=== PATIENT | female | born 1955 | race Caucasian/White ===

== ENCOUNTER 2017-06-17 11:50 | Outpatient (CLI) | payer BC ==
[2017-06-17 13:20] LABS: Hemoglobin 14.8 g/dL (12.0-16.0); Mean Corpuscular HGB CONC 33.1 g/dL (32.0-36.0); Mean Corpuscular Hemoglobin 30.3 pg (27.0-31.0); Mean Corpuscular Volume 91.4 fl (81.0-99.0); Mean Platelet Volume 7.1 fL (7.4-10.4); Platelet Count 284 thou/uL (130-400); Red Blood Cell (RBC) Count 4.88 mill/uL (4.20-5.40); White Blood Cell (WBC) Count 7.2 thou/uL (4.8-10.8)
[2017-06-17 13:29] LABS: PTT 29.8 SEC (22.9-36.1); Prothrombin Time 13.1 SEC (12.0-14.7)
== END 2017-06-17 11:51 | disposition home or self-care (01) ==
LOC: LABBT 11:50
PROVIDERS: ATTEND Neurological Surgery
DX: M48.061 Spinal stenosis, lumbar region without neurogenic claudication (principal); M71.8 Other specified bursopathies
CPT/HCPCS: 85027; 85610; 85730

== ENCOUNTER 2017-06-17 12:00 | Inpatient (IN) | payer BC ==
[2017-06-17 12:13] VITALS: BMI 24.4
--- NOTE | 2017-06-17 16:40 | HP ---
HISTORY OF PRESENT ILLNESS: Slime Lang is a 61-year-old female that presents with low back pain, right greater than left; numbness and tingling in the L5 dermatome. She has had low back pain for y ears; however, she is very tender over the bilateral SI joint and the pain has gotten worse over the past 3 months. The pain is made worse with stepping up onto something and walking. She has had no l umbar epidural steroids or physical therapy. She is very unsteady on her feet and she has been this way for several years. She has not had any bowel or bladder incontinence. IMAGING: MRI of the lumbar spines at [facility]. X-ray of the lumbar spine, [facility]. REVIEW OF SYSTEMS: 10-point review of systems was complete and is otherwise negative unless stated i n the above HPI. PAST MEDICAL HISTORY: 1. Restless legs syndrome. 2. Asthma. 3. Cervical arthritis. 4. Sciatica, insomnia. PAST SURGICAL HISTORY: 1. Complete hysterectomy in 1994. 2. Bilateral arms, hands, nerve release in 1998. FAMILY HISTORY: Father is at 69 years old with colon cancer. Mother is at 70 year s old with heart disease. One daughter that is healthy. One brother that at the age of 38 with a heart attack. Sister that at the age of 64 with lung cancer. SOCIAL HISTORY: The patient is a current smoker, 1 pack a day for 50 years. She has 5 alcoholic aleena erages a day. She is retired. She is and has 1 child. MEDICATIONS: 1. Celebrex 200 mg capsule, 1 capsule orally once a day. 2. Ranitidine 75 mg tablet, 1 tablet orally p.r.n. 3. Allergy injections 2 shots twice a week. 4. Albuterol sulfate 0.083% liquid use one vial nebulizer inhaled q.4-6 hours for shortness of breat h. 5. Carbidopa and levodopa 10/100 mg tablet, take 1 tablet by mouth every day. 6. Advair Diskus 100/50 mcg per dose. 7. Effexor XR 150 mg capsule extended release 24 hour, 1 capsule orally once a day. 8. Zolpidem tartrate 12.5 mg tablet extended release, 1 tablet at bedtime as needed, orally once a d ay. 9. Swimmer's ear drops/isopropyl alcohol as directed. 10. Zyrtec-D Allergy & Congestion 5/125 mg tablet extended release for 12 hour. 11. Detrol LA 4 mg capsule, extended release, 1 capsule orally once a day. ALLERGIES: No known drug allergies. PHYSICAL EXAMINATION: HEENT: Normocephalic, atraumatic. Hearing intact. Moist mucous membranes. Trachea is midline. Ey es: Pupils are equal and reactive to light. Extraocular muscles are intact. Sclerae are white and nonicteric. PSYCHIATRIC: Normal mood and affect. CARDIOVASCULAR/CARDIOPULMONARY: No cyanosis or clubbing noted. Intact pedal pulses bilaterally. MUSCULOSKELETAL: Lower extremity, 4/5 strength in bilateral iliopsoas, quadriceps, hamstrings, right iliopsoas anterior, extensor hallucis longus. Sensory deficits bilaterally, but worse in the right L5 dermatome. Tender to palpation over the bilateral SI joints. RESPIRATORY: Even respirations, good effort. All lung yi sound clear with no wheezing or crackl es. NEUROLOGIC: Cranial nerves II-XII are grossly intact. Speech is fluent. She answers my questions a ppropriately. The patient has unsteady gait and station. ASSESSMENT: 1. Neurogenic claudication due to lumbar spinal stenosis. 2. Lumbar radiculopathy. 3. Lumbago with sciatica of the left side and the right side. 4. Bilateral sacroiliitis. PLAN: Flexion and extension x-rays of the lumbar spine to check for abnormal translation were perfor med, and there is L4-L5 instability. Dr. Ramirez talked with the patient about an L2-L3 and L4-L5 laminectomy and synovial cystectomy with an L4-L5 TLIF. The patient is to quit smoking. We discusse d the risks, benefits, and possible complications of surgery. She is fully aware of the risks and is willing to proceed with the surgery.
[2017-06-19] MEDS ORDERED: Midazolam HCl 2 mg/2 ml Vial ONE (06:10)
[2017-06-19] MEDS ORDERED: Fentanyl 100 MCG/2 ML VIAL ONE ×3 (06:10→13:02)
[2017-06-19] MEDS ORDERED: CEFAZOLIN/Water 2 GM/20 ML SYRINGE ONE (06:11)
[2017-06-19] MEDS ORDERED: Fentanyl 250 MCG/5 ML VIAL ONE (06:21)
[2017-06-19] MEDS ORDERED: Sodium Chloride 0.9% 20 ML ONE (06:40)
[2017-06-19] MEDS ORDERED: Lidocaine 1% w/Epinephrine 1:200K 30 ML VIAL ONE (06:40)
[2017-06-19] MEDS ORDERED: Thrombin 5000 UNITS/5 ML VIAL ONE ×2 (06:40→12:34)
[2017-06-19] MEDS ORDERED: Bupivacaine PF 0.5% 30 ML VIAL ONE (07:49)
[2017-06-19] MEDS ORDERED: Meperidine HCl/PF 25 MG/ML VIAL SLOW IVP PRN (11:30)
[2017-06-19] MEDS ORDERED: Promethazine HCl 25 MG/ML VIAL SLOW IVP PRN (11:30)
[2017-06-19] MEDS ORDERED: HYDROmorphone 2 MG/ML VIAL SLOW IVP PRN (11:30)
[2017-06-19] MEDS ORDERED: Morphine Sulfate 2 MG/ML SYRINGE SLOW IVP PRN (11:30)
[2017-06-19] MEDS ORDERED: PHENYLEPHRINE-NS 100 MCG/ML 10 ML SYRINGE ONE ×2 (11:40→12:33)
[2017-06-19] MEDS ORDERED: Acetaminophen/Codeine 30-300mg Tablet PO PRN (11:56)
[2017-06-19] MEDS ORDERED: Ondansetron HCl/PF 4 MG/2 ML Vial IVP PRN (11:56)
[2017-06-19] MEDS ORDERED: Morphine 4 MG/ML Carpuject SLOW IVP PRN ×2 (11:56)
--- NOTE | 2017-06-19 11:59 | OP ---
DATE OF PROCEDURE: 06/19/2017 SURGEON: Liss Ramirez M.D. LAUNDRY TECH: Ashvin Palma PA-C. PREOPERATIVE INDICATION: Treat pain, prevent neurological deterioration. PREOPERATIVE DIAGNOSES: L2-3 stenosis with synovial cyst and radiculopathy, L4-L5 stenosis from spon dylolisthesis, unstable. POSTOPERATIVE DIAGNOSES: L2-L3 stenosis with synovial cyst and radiculopathy, L4-L5 stenosis from sp ondylolisthesis, unstable. OPERATIVE PROCEDURE: Decompressive laminectomy, medial facetectomy, foraminotomy, and microsurgical resection of synovial cyst at L2-3, decompressive laminectomy, medial facetectomy, foraminotomy, aceves sforaminal lumbar interbody arthrodesis, placement of intervertebral biomechanical device, pedicle sc rew and jag instrumentation, posterolateral arthrodesis at L4 and L5. PREOPERATIVE MEDICATION: Ancef 2 grams IV. DRAIN NUMBER: 1 DRAIN TYPE: Vietnamese Richi. OPERATIVE DICTATION: The patient was brought to the operating room. General endotracheal anesthesia was induced. The patient was positioned prone on the operating table on the Sergio frame. A later al fluoro radiograph was used to plan the incision. The appropriate attachments for the chest and hi ps were used for the Sergio frame. The lumbar skin was sterilely prepped and draped. We opened our incision with a 10 blade knife and controlled bleeding with bipolar and monopolar cautery. We used monopolar cautery to dissect through the subcutaneous tissues to the thoracodorsal fascia. We incise d the fascia in the midline and reflected the paraspinal muscles off the spinous process and lamina o f L2, L3, L4, and L5. A lateral fluoro radiograph confirmed the levels upon which we were operating. We then carried our dissection over the L3-4 and L4-5 facet joints to the transverse processes of L 4 and L5 bilaterally. We irrigated copiously with bacitracin irrigation and placed self-retaining re tractors. We then used an Adson rongeur to remove the spinous process of L2 and the superior portion of L3. In a similar fashion, we removed the spinous process of L4 and the superior portion of L5. We fashioned a laminectomy at L2-L3 and L4-L5. The operating microscope was brought into the field. Under microscopic magnification and using microsurgical techniques, we removed the yellow ligament. There was an intraspinal extradural mass in the lateral recess on the right side at L2-3. This was f illed with old blood products. This was a synovial cyst and it was adherent to the dura. We careful ly dissected off the dura and there was no durotomy encountered. We removed it attachments of the fa cet joint and perform medial facetectomy. We performed foraminotomies over the exiting L2 and susan sing and exiting L3 nerve roots on both sides. After securing our decompression there we turned our attention to L4-5. In a similar fashion, the operating microscope and we completed our medial facete ctomy, foraminotomy over the L4 and L5 nerve roots. We used a high-speed drill to drill out the pars and articularis of L4 on the right side. Using this opening into the foramen, we accessed the inter vertebral disk under the L4 nerve root. We removed disk contents using curettes and rongeurs. A bon e rasp was brought into the field and using progressively larger rasp, we measured the height of the interspace to 9 mm. We prepared the endplates for grafting. Our laminectomy bone was carefully mors elized the back table after soft tissue was removed and this was added to demineralized bone matrix a s our fusion substrate. The substrate was packed a 9 mm PEEK intervertebral graft and the graft was advanced into the interspaces under radiographic guidance to the appropriate depth. We turned our at tention to pedicle screw instrumentation. We removed the operating microscope and then using a lateral fluoro radiograph, bony anatomic landmar ks, plication of the medial portion of the pedicles, we chose our entry points at L4 and L5 pedicle s crews. We drilled all our entry points and then used a bone awl the create our trajectory through th e pedicles into the vertebral bodies. We tapped the trajectory. We probed these and found it comple tely encased in bone. We placed 6.5 mm diameter screws at L4 and L5 bilaterally. A 360 degree image set was generated with our isocentric C-arm confirming adequate positioning of our pedicle screw ins trumentation. We then irrigated copiously with bacitracin irrigation. We decorticated the transvers e processes bilaterally and left demineralized bone matrix and morselized autograft over the transver se processes as are posterolateral fusion substrate. We brought rods down into the screw heads and t ightened caps down over the rods using [id number] mechanism, we ensured adequate tightness before final tightening. Before tightening, we used gentle compression across the interspace to selma p our interbody device in place. We ensured that the L4 nerve roots were still widely decompressed. We tunneled a drain inferiorly through a separate stab incision and applied vancomycin powder to the wound. We closed the wound in anatomic layers over a drain. This was a clean case and no contamina tion.
[2017-06-19] MEDS ORDERED: Docusate 100 MG CAP PO PRN (12:00)
[2017-06-19] MEDS ORDERED: Famotidine 20 MG TAB PO PRN (12:00)
[2017-06-19] MEDS ORDERED: [UNRECOGNIZED DRUG - REMARK] SC SCH (12:00)
[2017-06-19] MEDS ORDERED: Dexamethasone 20 MG/5 ML VIAL ONE (12:33)
[2017-06-19] MEDS ORDERED: Lidocaine 1% PF 5 ML VIAL ONE (12:33)
[2017-06-19] MEDS ORDERED: Ondansetron HCl/PF 4 MG/2 ML Vial ONE (12:33)
[2017-06-19] MEDS ORDERED: PROPOFOL 200 MG/20 ML VIAL ONE (12:33)
[2017-06-19] MEDS: CEFAZOLIN/Water 2 GM/20 ML SYRINGE SLOW IVP SCH ×2 (14:54→22:05)
[2017-06-19] MEDS: HYDROcodone/Acetaminophen 10/325 mg Tablet PO PRN (17:08)
[2017-06-19] MEDS: tiZANidine HCl 4 MG TAB PO PRN (17:11)
[2017-06-19] MEDS: Sodium Chloride 0.9% 1,000 ML IV SCH (17:30)
[2017-06-19] MEDS: Mometasone/Formoterol 120 PUFF INHALER INH SCH (19:21)
[2017-06-19] MEDS: Carbidopa/Levodopa 10-100 mg Tablet PO SCH (22:04)
[2017-06-19] MEDS: Zolpidem Tartrate 5 MG TAB PO SCH (22:04)
[2017-06-19] MEDS: TROSPIUM 20 MG TABLET PO SCH (22:04)
[2017-06-19] MEDS: Acetaminophen/Codeine 30-300mg Tablet PO PRN (22:05)
[2017-06-20] MEDS: Sodium Chloride 0.9% 1,000 ML IV SCH ×3 (06:10→20:48)
[2017-06-20] MEDS: CEFAZOLIN/Water 2 GM/20 ML SYRINGE SLOW IVP SCH ×3 (06:11→20:47)
[2017-06-20] MEDS: tiZANidine HCl 4 MG TAB PO PRN (06:11)
[2017-06-20] MEDS: Mometasone/Formoterol 120 PUFF INHALER INH SCH ×2 (07:51→19:53)
[2017-06-20] MEDS: Loratadine 10 MG TAB PO SCH (08:34)
[2017-06-20] MEDS: TROSPIUM 20 MG TABLET PO SCH ×2 (08:35→20:47)
[2017-06-20] MEDS: Venlafaxine HCl XR 150 MG CAP PO SCH (08:35)
[2017-06-20] MEDS: Acetaminophen/Codeine 30-300mg Tablet PO PRN ×2 (08:35→14:45)
--- NOTE | 2017-06-20 12:16 | PRG ---
DATE OF SERVICE: 06/20/2017 Ms. Lang is now postop day #1 following lumbar laminectomy and T lift. Overall, she is doing marcio y well. She has ambulated some to the bathroom, but has mostly just stayed in bed since yesterday. She reports the expected soreness and pain in her midline lumbar spine, but otherwise I think it look s to be very well appearing. She is eating breakfast this morning. Plan will be to get her up and m obilize plenty today and then anticipate discharge as early as later this evening, but likely tomorro w morning. She does continue to have a TIFFANIE drain that has drained 130 since yesterday. We will armando ornelas to follow.
[2017-06-20] MEDS: Zolpidem Tartrate 5 MG TAB PO SCH (20:47)
[2017-06-20] MEDS: Carbidopa/Levodopa 10-100 mg Tablet PO SCH (23:14)
[2017-06-21] MEDS: CEFAZOLIN/Water 2 GM/20 ML SYRINGE SLOW IVP SCH (06:15)
[2017-06-21] MEDS: HYDROcodone/Acetaminophen 10/325 mg Tablet PO PRN (06:18)
[2017-06-21] MEDS: Mometasone/Formoterol 120 PUFF INHALER INH SCH (07:11)
[2017-06-21 08:11] VITALS: BP 126/69; TEMP 99.1
[2017-06-21] MEDS ORDERED: Multivitamin W/ Minerals 1 TAB PO SCH (09:00)
[2017-06-21] MEDS: Loratadine 10 MG TAB PO SCH (09:27)
[2017-06-21] MEDS: Venlafaxine HCl XR 150 MG CAP PO SCH (09:28)
[2017-06-21] MEDS: TROSPIUM 20 MG TABLET PO SCH (09:28)
--- NOTE | 2017-06-21 09:28 | DIS ---
DATE OF ADMISSION: 06/19/2017 DATE OF DISCHARGE: 06/21/2017 Ms. Lang was admitted to [facility] by Dr. Hosea Ramirez on 06/19/2017 with subsequent discharge on 06/21/2017 in the postoperative period. ADMISSION DIAGNOSIS: Status post lumbar fusion. DISCHARGE DIAGNOSES: Status post lumbar fusion. Ms. Lang's hospital course was not complicated by any significant matter, no consultations were o rdered. There was minor pain control issues in the first day, but this resolved on the second day. She has been ambulating well on her own and is eager to get home. Incision has remained well approxi mated and dry. She did have a TIFFANIE drain, initially drained 140 in the first day and then 60 over nigh t the second evening, this was removed in the morning on the 06/21/2017 and she was ultimately discha rged home in good condition with outpatient followup planned [facility].
== END 2017-06-21 11:44 | disposition home or self-care (01) | DRG 460 ==
LOC: SURG A 06-19 05:35 → SJJU 06-19 13:06
PROVIDERS: ADMIT Neurological Surgery; ATTEND Neurological Surgery
PROC: 0SG10AJ Fusion of 2 or more Lumbar Vertebral Joints with Interbody Fusion Device, Posterior Approach, Anterior Column, Open Approach (ICD-10-PCS; principal; 2017-06-19)
PROC: 01NB0ZZ Release Lumbar Nerve, Open Approach (ICD-10-PCS; 2017-06-19)
PROC: 0QB00ZZ Excision of Lumbar Vertebra, Open Approach (ICD-10-PCS; 2017-06-19)
DX: M48.062 Spinal stenosis, lumbar region with neurogenic claudication (principal); F17.210 Nicotine dependence, cigarettes, uncomplicated; M71.30 Other bursal cyst, unspecified site; M51.17 Intervertebral disc disorders with radiculopathy, lumbosacral region; M46.1 Sacroiliitis, not elsewhere classified; M71.38 Other bursal cyst, other site; Z82.49 Family history of ischemic heart disease and other diseases of the circulatory system; Z80.1 Family history of malignant neoplasm of trachea, bronchus and lung
CPT/HCPCS: 76001; A4216; C1713; C1768; G8978-GP-CJ; G8979-GP-CJ; G8980-GP-CJ; J1100; J2001; J2250; J2405; J2704; J3010; J3370; J3490; S0020

== ENCOUNTER 2018-03-22 12:34 | Outpatient (CLI) | payer BC ==
--- NOTE | 2018-03-22 15:27 | MRI ---
CERVICAL SPINE MRI WITHOUT CONTRAST: HISTORY: Herniated nucleus pulposis of the cervical spine. Neck pain x 30+ years. COMPARISON: None. TECHNIQUE: MRI cervical spine is performed without intravenous Gadolinium administration. Multisequential, mult iplanar imaging is performed. Multisequential, multiplanar imaging is performed. FINDINGS: Appropriate T1 marrow signal intensity of the cervical vertebrae. Vertebral body height is maintaine d. No fracture. No significant STIR hyperintensity to suggest vertebral body edema or ligamentous i njury. Visualized brain parenchyma, cervicomedullary junction, cervical cord, and the upper thoracic cord fountain ve a normal size and signal intensity. There is T2 and FLAIR hyperintensity involving the visualized mid brain and rere which may be on the basis of chronic small-vessel ischemic change. Reference made to a brain MRI from 10/03/2016 does demo nstrate T2 and FLAIR hyperintensities. C2-C3: No significant disk-osteophyte complex. No significant central canal stenosis. Foramen are patent. C3-C4: Broad-based disk-osteophyte complex with a central component abuts the thecal sac. No signif icant central canal stenosis. Degenerative change of bilateral uncovertebral joints results in moder ate bilateral foraminal narrowing. C4-C5: No significant disk-osteophyte complex. No significant central canal stenosis. Neural lynnette en are patent bilaterally. C5-C6: There is a broad-based disk-osteophyte complex that abuts the thecal sac. Ventral subarachno id space is effaced. Mild flattening of the cervical cord. No T2 hyperintensity in the cord. Mild to moderate central canal stenosis. Right neural foramen is patent. Moderate left foraminal narrowi ng. C6-C7: No significant disk-osteophyte complex. No significant central canal stenosis. Foramen are patent. C7-T1: No significant disk-osteophyte complex. No significant central canal stenosis. Foramen are patent. IMPRESSION: Degenerative change of the cervical spine as detailed above. POS: LIVE
== END 2018-03-22 12:35 | disposition home or self-care (01) ==
LOC: TBSIIMAG 12:34 → MRI 12:35
PROVIDERS: ATTEND Neurological Surgery
DX: M50.20 Other cervical disc displacement, unspecified cervical region (principal); M47.892 Other spondylosis, cervical region
CPT/HCPCS: 72141

== ENCOUNTER 2023-08-04 14:19 | Inpatient (IN) | payer MEDICARE ==
[2023-08-04] MEDS ORDERED: Ondansetron ODT 4 MG TAB PO PRN (15:27)
[2023-08-04] MEDS: Sodium Chloride 0.9% 1,000 ML IV SCH (16:23)
[2023-08-04] MEDS: Nicotine 14 MG PATCH TD SCH (16:23)
[2023-08-04] MEDS: FLU VACC QS2023(65UP)/MF59C/PF 60 MCG/0.5 ML SYRINGE IM ONE (16:48)
[2023-08-04] MEDS: Guaifenesin DM 100-10/5 ML UDCUP PO PRN (20:16)
[2023-08-04] MEDS: Acetaminophen 325 MG TAB PO PRN (20:16)
[2023-08-04] MEDS: Famotidine 20 MG TAB PO SCH (20:16)
[2023-08-05 07:26] LABS: #Eosinphils 0.3 thou/uL (0.0-0.7); #Monocytes 0.8 thou/uL (0.11-0.59); #Neutrophils 7.6 thou/uL (1.40-6.50); %Basophils 0.4 % (0.0-1.0); %Eosinophils 2.6 % (0.0-10.0); %Lymphocytes 10.4 % (21.0-51.0); %Monocytes 7.9 % (0.0-10.0); %Neutrophils 77.1 % (42.0-75.0); Hematocrit 29.7 % (36.0-47.0); Hemoglobin 9.8 g/dL (12.0-16.0); Mean Corpuscular Hemoglobin 29.9 pg (27.0-31.0); Mean Corpuscular Volume 90.5 fl (78.0-98.0); Mean Platelet Volume 9.1 fL (7.4-10.4); Platelet Count 321 10x3/uL (130-400); RBC Distribution Width 15.6 % (11.5-14.5); Red Blood Cell (RBC) Count 3.28 mill/uL (4.20-5.40); White Blood Cell (WBC) Count 9.8 10x3/uL (4.8-10.8)
[2023-08-05 08:04] LABS: Anion Gap 12 mmol/L (10-20); BUN (Urea Nitrogen) 36 mg/dL (9.8-20.1); Calc. Creatinine Clearance 39 mL/min (70-130); Calcium 8.7 mg/dL (7.8-10.44); Carbon Dioxide 21 mmol/L (23-31); Chloride 113 mmol/L (98-107); Estimated GFR 44; Glucose 115 mg/dL (80-115); Potassium 3.6 mmol/L (3.5-5.1); Sodium 142 mmol/L (136-145)
[2023-08-05] MEDS: cefTRIAXone\\ROCEPHIN 1 GM in Sodium Chloride 0.9% 100 ML IVPB SCH (08:05)
[2023-08-05 09:06] LABS: Phosphorus 2.6 mg/dL (2.3-4.7)
[2023-08-05] MEDS ORDERED: Non-Formulary Item 1 EACH (Carbidopa/Levodopa [Carbidopa-Levo 10-100 Mg Odt] 1 EACH Tab.R PO SCH (10:15)
[2023-08-05] MEDS: Venlafaxine HCl XR 150 MG CAP PO SCH (11:05)
[2023-08-05 12:29] VITALS: BMI 22.1
[2023-08-05] MEDS: 1/2 NS w/Potassium 20 mEq 1,000 ML IV SCH (14:48)
[2023-08-05] MEDS: Nicotine 14 MG PATCH TD PRN (17:23)
[2023-08-05] MEDS: Carbidopa/Levodopa 10-100 mg Tablet PO SCH (20:42)
[2023-08-05] MEDS: Oxybutynin 5 MG TAB PO SCH (20:42)
[2023-08-05] MEDS: Loperamide HCl 2 MG CAP PO PRN (20:43)
[2023-08-05] MEDS: traZODone HCl 50 MG TAB PO PRN (20:43)
[2023-08-05] MEDS ORDERED: Trospium 20 MG TAB PO SCH (21:00)
[2023-08-05] MEDS ORDERED: TOLTERODINE TARTRATE 4 MG PO SCH (21:00)
[2023-08-06 06:37] LABS: Anion Gap 12 mmol/L (10-20); BUN (Urea Nitrogen) 16 mg/dL (9.8-20.1); Calc. Creatinine Clearance 53 mL/min (70-130); Calcium 8.6 mg/dL (7.8-10.44); Carbon Dioxide 22 mmol/L (23-31); Chloride 112 mmol/L (98-107); Estimated GFR 62; Glucose 101 mg/dL (80-115); Potassium 3.7 mmol/L (3.5-5.1); Sodium 142 mmol/L (136-145)
[2023-08-06] MEDS: Loratadine 10 MG TAB PO SCH (08:35)
[2023-08-06] MEDS: Venlafaxine HCl XR 150 MG CAP PO SCH (08:35)
[2023-08-06] MEDS: Famotidine 20 MG TAB PO SCH (08:35)
[2023-08-06] MEDS: Aspirin 81 mg Enteric Coated Tablet PO SCH (08:35)
[2023-08-06] MEDS: Clopidogrel Bisulfate 75 MG TAB PO SCH (08:35)
[2023-08-06] MEDS: cefTRIAXone\\ROCEPHIN 1 GM in Sodium Chloride 0.9% 100 ML IVPB SCH (08:36)
[2023-08-06] MEDS: Cefdinir 300 MG CAP PO SCH (09:00)
[2023-08-06] MEDS ORDERED: Non-Formulary Item 1 EACH (Cetirizine Hcl [Zyrtec] 10 MG Capsule) PO SCH (09:00)
[2023-08-06 12:20] VITALS: BP 152/82; TEMP 98.9
[2023-08-07 16:39] LABS: Adenovirus F 40-41 Not Detected (Not Detected); Astrovirus Not Detected (Not Detected); C. difficile toxin A+B Not Detected (Not Detected); Campylobacter by PCR Not Detected (Not Detected); Cryptosporidium Not Detected (Not Detected); Cyclospora cayetanensis Not Detected (Not Detected); Entamoeba histolytica Not Detected (Not Detected); Enteroaggregative E. coli Not Detected (Not Detected); Enteropathogenic E. coli Not Detected (Not Detected); Enterotoxigenic E. coli Not Detected (Not Detected); Giardia lamblia Not Detected (Not Detected); Norovirus GI-GII Not Detected (Not Detected); Plesiomonas shigelloides Not Detected (Not Detected); Rotavirus A Not Detected (Not Detected); Salmonella Not Detected (Not Detected); Sapovirus Not Detected (Not Detected); Shiga-toxin-producing E coli Not Detected (Not Detected); Shigella/Enteroinvasive E coli Not Detected (Not Detected); Vibrio Not Detected (Not Detected); Vibrio cholerae Not Detected (Not Detected); Yersinia enterocolitica Not Detected (Not Detected)
== END 2023-08-06 11:30 | disposition home or self-care (01) | DRG 872 ==
LOC: T4-B 14:19
PROVIDERS: ADMIT Internal Medicine; ATTEND Internal Medicine
DX: A41.9 Sepsis, unspecified organism (principal); N17.9 Acute kidney failure, unspecified; N39.0 Urinary tract infection, site not specified; E87.20 Acidosis, unspecified; E87.1 Hypo-osmolality and hyponatremia; J44.9 Chronic obstructive pulmonary disease, unspecified; R65.20 Severe sepsis without septic shock; F17.210 Nicotine dependence, cigarettes, uncomplicated; E86.0 Dehydration; G25.81 Restless legs syndrome; F41.9 Anxiety disorder, unspecified; N18.30 Chronic kidney disease, stage 3 unspecified; R19.7 Diarrhea, unspecified; R53.1 Weakness; D64.9 Anemia, unspecified; Z79.899 Other long term (current) drug therapy; Z79.82 Long term (current) use of aspirin; Z71.6 Tobacco abuse counseling; Z90.710 Acquired absence of both cervix and uterus; Z98.890 Other specified postprocedural states; Z98.49 Cataract extraction status, unspecified eye; Z82.49 Family history of ischemic heart disease and other diseases of the circulatory system
CPT/HCPCS: 36415; 80048; 83605; 83735; 84100; 84145; 85025; 87086; 87324; 87328; 87329; 87449; 87507; J0696; J3480; J3490; J7050